=== PATIENT | female | born 1935 | race Caucasian/White ===

== ENCOUNTER 2016-08-30 08:56 | Emergency (ER) | payer OTHER, BC ==
[2016-08-30 09:05] VITALS: BMI 37.0
--- NOTE | 2016-08-30 09:12 | PDOC ---
History of Present Illness - General History Source: Patient Exam Limitations: No Limitations - History of Present Illness Initial Comments: 08/30/16 10:19 The patient is a 80 year old female, with a significant past medical history of HTN, RA (not on meds, pt intermittently takes naproxen rarely), and neuropathy, who presents to the emergency department with lower abdominal pain for 5-6 days. She reports her pain is constant and has been getting progressively worse. She ranks her abdominal pain a 8/10 in pain intensity. She notes having some discomfort when she urinates. Daughter reports the patient having diarhea the other day with the presence of black stool. She notes her last bowel movement was this morning, which was well formed but dark in color. She also has chief complaints of a subjective fever and notes having one episode of vomiting (nonbloody) that was food contents, no blood/coffee grounds. She denies chest pain and shortness of breath. She denies chills, headache and dizziness. Pt notes she has a history of 'nervous' colitis <?>. Allergies: Penicillins Past surgical history: Bilateral THR Social history: Nonsmoker. PCP: <Jamey Shine - Last Filed: 08/30/16 14:17> <Spencer Jasso - Last Filed: 08/30/16 18:15> - General Chief Complaint: Pain Stated Complaint: ABD PAIN, VOMITING Time Seen by Provider: 08/30/16 09:12 Past History <Jamey Shine - Last Filed: 08/30/16 14:17> - Past Medical History HTN: Yes Other medical history: neuropathy - Surgical History Cholecystectomy: Yes - Psycho/Social/Smoking Cessation Hx Anxiety: No Suicidal Ideation: No Smoking History: Never smoked Have you smoked in the past 12 months: No Information on smoking cessation initiated: No Hx Alcohol Use: No Drug/Substance Use Hx: No Substance Use Type: None <Spencer Jasso - Last Filed: 08/30/16 18:15> - Past Medical History Allergies/Adverse Reactions: Allergies Allergy/AdvReac Type Severity Reaction Status Date / Time Penicillins Allergy Verified 08/30/16 09:58 Home Medications: Ambulatory Orders Aspirin [ASA -] 81 mg PO DAILY 08/30/16 Atenolol [Tenormin -] 100 mg PO DAILY 08/30/16 Ibuprofen 400 mg PO QID PRN #24 tablet 08/30/16 Oxycodone HCl/Acetaminophen [Percocet 5-325 mg Tablet] 1 tab PO Q6H PRN #10 tablet MDD 4 08/30/16 Pregabalin [Lyrica -] 50 mg PO DAILY 08/30/16 Tamsulosin HCl [Flomax] 0.4 mg PO DAILY #7 cap.er.24h 08/30/16 Review of Systems - Review of Systems Able to Perform ROS?: Yes Comments:: 08/30/16 10:19 CONSTITUTIONAL: Reported: subjective fever. No reported: Chills, Diaphoresis, Generalized Weakness, Malaise, Loss of Appetite HEENT: No reported: Rhinorrhea, Nasal Congestion, Throat Pain, Throat Swelling, Difficulty Swallowing, Mouth Swelling, Ear Pain, Eye Pain, Visual Changes CARDIOVASCULAR: No reported: Chest Pain, Syncope, Palpitations, Irregular Heart Rate, Lightheadedness, Peripheral Edema RESPIRATORY: No reported: Cough, Shortness of Breath, SOB with Exertion, Orthopnea, Wheezing , Stridor, Hemoptysis GASTROINTESTINAL: Reported: abd pain , nausea, vomiting, black stool, and diarrhea. No reported: Constipation, Hematochezia GENITOURINARY: Reported: dysuria No reported: Frequency, Urgency, Hesitancy, Flank Pain, Genital Pain MUSCULOSKELETAL: No reported: Myalgia, Arthralgia, Joint Swelling, Back pain, Neck Pain SKIN: No reported: Rash, Itching, Pallor HEMEATOLOGIC/IMMUNOLOGIC: No reported: Easy Bleeding, Easy Bruising, Lymphadenopathy, Frequent infections ENDOCRINE: No reported: Unexplained Weight Gain, Unexplained Weight Loss, Heat Intolerance , Cold Intolerance NEUROLOGIC: No reported: Headache, Focal Weakness, Paresthesias, Vertigo, Lightheadedness, Unsteady Gait, Seizure, Mental Status Changes, Incontinence PSYCHIATRIC: No reported: Anxiety, Depression <Jamey Shine - Last Filed: 08/30/16 14:17> *Physical Exam - Vital Signs Last Vital Signs Temp Pulse Resp BP Pulse Ox 97.8 F 76 18 155/98 100 08/30/16 09:00 08/30/16 09:00 08/30/16 09:00 08/30/16 09:00 08/30/16 09:00 - Physical Exam Comments: 08/30/16 10:20 GENERAL: The patient is awake, alert, and fully oriented, Nontoxic - in no acute distress. HEAD: Normocephalic, atraumatic. EYES: extraocular movements intact, sclera anicteric, conjunctiva clear. ENT: Normal voice, Moist mucous membranes. NECK: Normal range of motion, supple LUNGS: Breath sounds equal, clear to auscultation bilaterally. No wheezes, no rhonchi, no rales. HEART: Regular rate and rhythm, without murmur, rub or gallop. ABDOMEN: Left side (upper and lower) abdominal tenderness. Soft, normoactive bowel sounds. No guarding, no rebound.No CVA tenderness. RECTUM: Minimal dark stool in the rectal vault. EXTREMITIES: Normal range of motion, no edema. No clubbing or cyanosis. No cords , erythema, or tenderness. NEUROLOGICAL: No facial asymmetry, Normal speech. PSYCH: Normal mood, normal affect. SKIN: Warm, Dry, normal turgor. <Jamey Shine - Last Filed: 08/30/16 14:17> - Vital Signs Last Vital Signs Temp Pulse Resp BP Pulse Ox 97.8 F 76 18 155/98 100 08/30/16 09:00 08/30/16 09:00 08/30/16 09:00 08/30/16 09:00 08/30/16 09:00 <Spencer Jasso - Last Filed: 08/30/16 18:15> Heart Score/ECG Review - ECG Impressions Comment:: 08/30/16 17:57 Twelve-lead EKG was performed and reviewed by me. There is normal sinus rhythm with a normal rate. Rate of 68 The axis is normal. The intervals are normal. There is normal R wave progression There are no ST or T wave abnormalities. Impression: Normal twelve-lead EKG <Spencer Jasso - Last Filed: 08/30/16 18:15> ED Treatment Course - LABORATORY CBC & Chemistry Diagram: 08/30/16 09:57 08/30/16 09:57 - RADIOLOGY Radiograph Interpretation: 08/30/16 14:19 CT ABDOMEN WITH CONTRAST impressions reported by : Previously visualized stone in the left kidney is now seen in the distal left ureter measuring 7.8 x 7.4 mm with obstruction resulting in mild to moderate left renal hydronephrosis and left hydroureter down to the level of the stomach. Otherwise, no interval change is identified. <RlJamey - Last Filed: 08/30/16 14:17> - LABORATORY CBC & Chemistry Diagram: 08/30/16 09:57 08/30/16 09:57 <Louisa,Spencer - Last Filed: 08/30/16 18:15> Medical Decision Making - Medical Decision Making 08/30/16 09:31 80y F hx of htn and neuropathy presents with complaint of 5 days of lower abdominal pain associated with nausea and vomiting x 1 as well as multiple episodes of black stool, one episode that was sticky and another that was well formed. Pt endorses subjective fevers/chills, also endorses mild dysuria. her rectal exam showed minimal stool in the rectal vault that apepared dark brown - stool guaiac sent. her abdominal exam noted for tenderness in the LUQ and LLQ w/ o rebound/guarding. Vitals were normal. differential includes but is not limited to gastritis, diverticlitis, upper gib , pancreatitis, uti will ck cbc, cmp, lipase, ua will give zofran, pain meds likely obtain CT due to focal tenderness A portion of this note was documented by scribe services under my direction. I have reviewed the details of the note, within reason, and agree with the documentation with the following case summary and management plan written by me 08/30/16 15:[address] abdomen noted for 7mm stone in the left distal ureter suspect that is the cuase of her sypmtoms 08/30/16 17:39 08/30/16 17:44 pt feeling improved eating a meal no abd tenderness or pain. will dc to fu with PMD and urology returnprecautiosn were dsicussed I discussed the physical exam findings, ancillary test results and final diagnoses with the patient. I answered all of the patient's questions. The patient was satisfied with the care received and felt comfortable with the discharge plan and treatment plan. The patient will call their primary care physician within 24 hours to arrange follow-up and will return to the Emergency Department with any new, persistent or worsening symptoms. 08/30/16 18:[address] negro agrees w/ discharge but will have pt fu with themt his week. <Louisa,Spencer - Last Filed: 08/30/16 18:15> *DC/Admit/Observation/Transfer - Attestations Scribe Attestion: 08/30/16 09:28 Documentation prepared by Jamey Shine, acting as center medical specialist for Spencer Jasso MD. <Jamey Shine - Last Filed: 08/30/16 14:17> - Discharge Dispostion Admit: No <Spencer Jasso - Last Filed: 08/30/16 18:15> Diagnosis at time of Disposition: Kidney stone on left side - Discharge Dispostion Disposition: HOME Condition at time of disposition: Improved - Prescriptions Prescriptions: Tamsulosin HCl [Flomax] 0.4 mg PO DAILY #7 cap.er.24h Ibuprofen 400 mg PO QID PRN #24 tablet PRN Reason: Pain Oxycodone HCl/Acetaminophen [Percocet 5-325 mg Tablet] 1 tab PO Q6H PRN #10 tablet MDD 4 PRN Reason: Severe Pain - Referrals Referrals: Claudio Wallace MD [Staff Physician] - - Patient Instructions Printed Discharge Instructions: DI for Kidney Stones Additional Instructions: Vuelva al departamento de emergencia inmediatamente con CUALQUIER nuevo, persistente o empeorando sntomas incluyendo empeoramiento de dolor, inhabilidad de tolerar la ingesta oral, fiebre / escalofros, o cualquier otra preocupacin. [place] el ibuprofeno cada 6 horas rox los prximos 2 dumont. [place] percocet si tiene dolor que no se trata con el motrin / ibuprofeno. Tenga cuidado de que puede hacer que tenga sueo, as que no conduzca ni sheila nada que pudiera ponerlo a usted u otros en peligro. No tome tylenol si shaila pecocet. Marcela flomax diariamente. Mantngase jame hidratado. Debe llamar y hacer el seguimiento con garcia mdico y urologa dentro de 3 dumont para mirella evaluacin ms detallada de carlos sntomas. Los resultados fueron discutidos con usted. Por favor, asegrese de que garcia mdico revise los resultados de garcia evaluacin de emergencia. Return to the emergency department immediately with ANY new, persistent or worsening symptoms including worsening pain, inability to tolerate oral intake, fever/chills, or any other concerns. Take the ibuprofen every 6 hours for the next 2 days. Take percocet if you have pain that is not treated with the motrin/ibuprofen. Beware that it may make you sleepy, so do not drive or do anything that would put you or others in danger. Do not take tylenol if taking pecocet. Take flomax daily. Stay well hydrated. You MUST call and follow up with your doctor and urology within 3 days for further evaluation of your symptoms. Results were discussed with you. Please make sure your doctor reviews the results of your emergency evaluation. Print Language: LIBYAN
[2016-08-30] MEDS ORDERED: ONDANSETRON 4 MG/2 ML VIAL IVPB ONE (09:32)
[2016-08-30] MEDS ORDERED: morphine CARPU-JECT 2 MG/1 ML DISP.SYRIN IVPUSH ONE (09:32)
[2016-08-30] MEDS ORDERED: morphine CARPU-JECT 2 MG/1 ML DISP.SYRIN ONE (09:39)
[2016-08-30] MEDS ORDERED: ONDANSETRON 4 MG/2 ML VIAL ONE (09:39)
[2016-08-30 10:17] LABS: EOSINOPHIL 1.5 % (0-4.5); MCH 28.2 pg (25.7-33.7); MCHC 33.5 g/dl (32.0-36.0); MEAN PLT VOLUME 9.1 fl (7.5-11.1); NEUTROPHILS 65.6 % (42.8-82.8); PLATELET COUNT 190 K/MM3 (134-434); RDW 14.2 % (11.6-15.6); WHITE BLOOD COUNT 8.1 K/mm3 (4.0-10.0)
[2016-08-30 10:19] LABS: URINE APPEARANCE CLEAR; URINE BILIRUBIN NEGATIVE (NEGATIVE); URINE BLOOD NEGATIVE (NEGATIVE); URINE COLOR YELLOW; URINE GLUCOSE (UA) NEGATIVE (NEGATIVE); URINE KETONE NEGATIVE (NEGATIVE); URINE LEUK ESTERASE NEGATIVE (NEGATIVE); URINE NITRITE NEGATIVE (NEGATIVE); URINE PROTEIN NEGATIVE (NEGATIVE); URINE UROBILINOGEN NEGATIVE E.U./dl (0.2-1.0)
[2016-08-30 10:27] LABS: INR 1.05 (0.82-1.09); PROTHROMBIN TIME (PATIENT) 11.6 SEC (9.98-11.88)
[2016-08-30 10:31] LABS: ALBUMIN 3.5 g/dl (3.4-5.0); BILIRUBIN,TOTAL 0.7 mg/dL (0.2-1.0); CALCIUM 9.5 mg/dL (8.5-10.1); CREATININE 1.1 mg/dL (0.55-1.02); TOT PROT 7.3 g/dl (6.4-8.2)
[2016-08-30] MEDS ORDERED: SODIUM CHLORIDE 500 ML IV STA (11:08)
[2016-08-30] MEDS ORDERED: ATENOLOL 50 MG TABLET (FP) PO ONE (14:22)
[2016-08-30] MEDS ORDERED: ATENOLOL 25 MG TABLET (FP) ONE (14:23)
--- NOTE | 2016-08-30 15:20 | EKG ---
Test Reason : Blood Pressure : / mmHG Vent. Rate : 068 BPM Atrial Rate : 068 BPM P-R Int : 182 ms QRS Dur : 088 ms QT Int : 402 ms P-R-T Axes : 031 056 055 degrees QTc Int : 427 ms NORMAL SINUS RHYTHM NORMAL ECG NO PREVIOUS ECGS AVAILABLE Confirmed by SANJU PILLAI MD ([id number]) on 08/30/2016 3:19:31 PM Referred By: Confirmed By:SANJU PILLAI MD
[2016-08-30] MEDS ORDERED: KETOROLAC TROMETHAMINE 30 MG/1 ML VIAL IVPUSH ONE (15:30)
[2016-08-30] MEDS ORDERED: KETOROLAC TROMETHAMINE 15 MG/ML VIAL ONE (15:34)
[2016-08-30 16:14] VITALS: PULSE 66; TEMP 98
[2016-08-30 16:27] VITALS: BP 134/51
== END 2016-08-30 18:13 | disposition home or self-care (01) ==
LOC: JER 08:56
PROC: 3E0337Z Introduction of Electrolytic and Water Balance Substance into Peripheral Vein, Percutaneous Approach (ICD-10-PCS; principal; 2016-08-30)
PROC: 3E0333Z Introduction of Anti-inflammatory into Peripheral Vein, Percutaneous Approach (ICD-10-PCS; 2016-08-30)
PROC: 3E033GC Introduction of Other Therapeutic Substance into Peripheral Vein, Percutaneous Approach (ICD-10-PCS; 2016-08-30)
DX: N13.2 Hydronephrosis with renal and ureteral calculous obstruction (principal); Z87.442 Personal history of urinary calculi; I10 Essential (primary) hypertension; M06.9 Rheumatoid arthritis, unspecified
CPT/HCPCS: 36415; 74177-TC; 80053; 81003; 82272; 83690; 85025; 85610; 86850; 86900; 86901; 93005; 93010; 96361; 96374; 96375; 99285-25; Q9967